=== PATIENT | female | born 1930 | race Caucasian/White ===

== ENCOUNTER → 2016-05-27 | Outpatient (CLI) | payer MEDICARE, BC ==
[~2016-05-27] MED LIST: ANTIVERT PO; AZITHROMYCIN250 MG PO; CALTRATE 600+D PO; MULTIVITAMIN1 UDCAP PO; PRINIVIL10 MG PO; TEKTURNA150 MG PO; VITAMIN C500 M1 PO; VITAMIN D2000 UNIT PO; XANAX0.5 MG PO
--- NOTE | ~2016-05-27 | MY11 ---
[facility] A Service of [facility] / [facility] RADIOLOGY TEXT RESULTS PATIENT: STANLEY PHELPS LOCATION: [facility] : 32 UNIT #: [id number] AGE: [address]: Parker Marsh MD SEX: F ORDER DR: [id number] [facility] [address] [place], [place] [address] [id number] O MR#: [id number] #: [id number] NAME: STANLEY PHELPS : 1930 SEX: F STUDY DATE/TIME: 05/27/2016 14:47 UNIT: [facility] ROOM: STUDY DESCRIPTION: MY Mammogram Screening Dig Lai Attending Physician: Parker Marsh M.D. Referring Physician: Parker Marsh M.D. Ordering Physician: Parker Marsh M.D. Primary Care Physician: Agustin Denise M.D. MEDICAL IMAGING REPORT This report is preliminary unless electronic signature is present EXAM Digital screening mammogram 05/27/2016 HISTORY 85-year-old woman, positive family history, sister. Annual screening. COMPARISON STUDIES Comparison mammograms date to 07/02/2005 with most recent 05/21/2015. FINDINGS Digital imaging of each breast was completed utilizing standard craniocaudal and mediolateral-oblique projections. Review and interpretation of digital mammograms include a second review in conjunction with FDA-approved CAD device. There is an overall increase in the parenchymal presentation bilaterally with a generalized fibronodular pattern in each breast. There are no breast masses and I see no asymmetry in the parenchymal presentation. There are no suspicious microcalcifications and I see no architectural disturbance. IMPRESSION Benign mammogram. One-year followup recommended. Patients over the age of 40 are entered into a reminder system with target due date for the next mammogram. A result letter will also be sent to the patient. BIRADS: 2 Benign finding [facility] A Service of [facility] & [facility] / [facility] RADIOLOGY TEXT RESULTS PATIENT: STANLEY PHELPS LOCATION: [facility] : 32 UNIT #: [id number] AGE: [address]: Parker Marsh MD SEX: F ORDER DR: Dictated by... Ayush Gardner M.D. THIS IS AN ELECTRONICALLY VERIFIED REPORT Ayush Gardner M.D. at 05/28/2016 8:11 AM JBB/pcl TD: 05/27/2016 16:49 JOB #: [id number] MEDICAL IMAGING REPORT Page 1 of 1 COPY
== END | disposition home or self-care (01) ==
LOC: CWCC 14:27
DX: Z12.31 Encounter for screening mammogram for malignant neoplasm of breast (principal); Z80.3 Family history of malignant neoplasm of breast
CPT/HCPCS: G0202